=== PATIENT | female | born 1990 | race Hispanic/Latino ===

== ENCOUNTER 2020-07-28 08:07 | Outpatient (CLI) | payer BC | END 2020-07-28 08:08 | disposition home or self-care (01) | LOC: CSHMRI 08:07 | PROVIDERS: ATTEND Family Medicine | DX: R16.0 Hepatomegaly, not elsewhere classified (principal); D13.4 Benign neoplasm of liver; K76.0 Fatty (change of) liver, not elsewhere classified | CPT/HCPCS: 74183 ==

== ENCOUNTER 2021-07-15 07:46 | Outpatient (CLI) | payer BC | END 2021-07-15 07:47 | disposition home or self-care (01) | LOC: CSHULT 07:46 | PROVIDERS: ATTEND Obstetrics & Gynecology | DX: N93.9 Abnormal uterine and vaginal bleeding, unspecified (principal) | CPT/HCPCS: 76856 ==

== ENCOUNTER 2021-08-20 10:05 | Outpatient (CLI) | payer BC | END 2021-08-20 10:06 | disposition home or self-care (01) | LOC: CSHMRI 10:05 | PROVIDERS: ATTEND Internal Medicine | DX: D13.4 Benign neoplasm of liver (principal) | CPT/HCPCS: 74183 ==